=== PATIENT | female | born 1985 ===

== ENCOUNTER 2020-11-05 15:40 | Emergency (ER) | payer SELFPAY ==
[~2020-11-05] VITALS: Ht 170.2 cm; Wt 86.3 kg
[2020-11-05] MEDS ORDERED: KETOROLAC 60MG/2ML VIAL IM ONE (17:45)
[2020-11-05 18:08] VITALS: BP 139/79
[2020-11-05] MEDS ORDERED: IBUP-2029 MT (18:35)
[2020-11-05] MEDS ORDERED: CYCL10TA7 MT (18:36)
== END 2020-11-05 18:57 | disposition home or self-care (01) ==
LOC: ER 15:40
DX: S40.012A Contusion of left shoulder, initial encounter (principal); J44.1 Chronic obstructive pulmonary disease with (acute) exacerbation; J45.909 Unspecified asthma, uncomplicated; Z88.6 Allergy status to analgesic agent; Z88.2 Allergy status to sulfonamides; V49.50XA Passenger injured in collision with unspecified motor vehicles in traffic accident, initial encounter; Y93.89 Activity, other specified; Y92.89 Other specified places as the place of occurrence of the external cause; Y99.8 Other external cause status
CPT/HCPCS: 73030; 73610; 96372; 99284; J1885